=== PATIENT | female | born 1955 | race Caucasian/White ===

== ENCOUNTER → 2018-04-13 09:05 | Outpatient (CLI) | payer BC, SELFPAY ==
--- NOTE | 2018-04-13 09:07 | DI.ECHO.S_ITS ---
[facility] +---------+ : : [address] : : : : [id number] : : : : Phone: [phone]+ Echocardiogram Report + + :Name: WALTER BAUER Study Date: 04/13/2018 Height: 72 in : :[facility] Exam Location: [facility] Weight: 275 lb : : Gender: Female BSA: 2.4 m2 : :: 1955 Age: 62 yrs BP: 138/74 mmHg: :Reason For Study: HTN : :Ordering Physician: Trevor : :[place]ins Performed By: Carolina Pedersen : :Referring: TREVOR GAVIN A : + + Interpretation Summary The left ventricle is mildly dilated but left ventricular systolic function is normal without focal wall motion abnormalities with the ejection fraction visually estimated to be 60-65%. There is mild concentric left ventricular with mild proximal septal thickening and diastolic parameters suggesting a possible pseudonormalization pattern, consistent with elevated filling pressures. The right ventricle is mildly dilated and right ventricular systolic function is at the lower limits of normal. The right ventricular systolic pressure is estimated at 42 mmHg assuming a right atrial pressure of 15 mm Hg. The left atrium is severely dilated and the right atrium is borderline dilated. There is no significant valvular heart disease. The ascending aorta is mild-moderately enlarged and the aortic arch is at the upper limits of normal in size. The patient was in sinus bradycardia with heart rates between 38-53 bpm during the exam. Procedure: A two-dimensional transthoracic echocardiogram with color flow and Doppler was performed. The study quality was technically adequate. There is no prior echocardiogram noted for this patient. The patient was in sinus bradycardia with heart rates between 38-53 bpm during the exam. Left Ventricle: The left ventricle is mildly dilated. There is mild concentric left ventricular hypertrophy. There is mild proximal septal thickening noted. Left ventricular systolic function is normal without focal wall motion abnormalities. The ejection fraction is estimated to be 60-65%. Assessment of diastolic parameters suggests a pseudonormalization pattern, consistent with elevated filling pressures. Right Ventricle: The right ventricle is mildly dilated. Right ventricular systolic function is at the lower limits of normal. Atria: The left atrium is severely dilated. The right atrium is borderline dilated. There is no Doppler evidence for an interatrial shunt. Mitral Valve: The mitral valve is normal in structure and function. There is trace mitral regurgitation. Aortic Valve: The aortic valve is trileaflet. The aortic valve opens well. There is trace aortic regurgitation. Tricuspid Valve: The tricuspid valve is normal in structure and function. There is trace tricuspid regurgitation. The right ventricular systolic pressure is estimated at 42 mmHg assuming a right atrial pressure of 15 mm Hg. Pulmonic Valve: The pulmonic valve is normal in structure and function. There is trace pulmonic regurgitation. There is no significant valvular heart disease. Great Vessels: The aortic root is normal size. The ascending aorta is mild- moderately enlarged. The aortic arch is at the upper limits of normal in size. The pulmonary artery is normal size. The IVC is dilated (diameter is greater than 2.1 cm) and it collapses less than 50% with a sniff. This suggests a high right atrial pressure of 15 mm Hg. Pericardium/ Pleura There is no pericardial effusion. There is no pleural effusion. MMode/2D Measurements & Calculations LVIDd: 5.9 cm LVOT diam: 2.3 cm LVIDs: 3.7 cm Ao root diam: 3.7 cm FS: 37.0 % asc Aorta Diam: 4.0 cm EPSS: 0.32 cm Ao Arch Diam (Prox Trans): 3.0 cm IVSd: 1.0 cm LVPWd: 1.1 cm LV freitas. diameter/BSA (cm/m^2): 2.4 LV sys. diameter/BSA (cm/m^2): 1.5 LA A2 area: 27.0 cm2 RA long axis: 5.4 cm LA A4 area: 30.1 cm2 RA area: 22.0 cm2 LA length (vol): 5.7 cm RA vol: 76.8 ml LA vol: 120.4 ml RA : 31.5 ml/m2 LA vol index: 49.3 ml/m2 IVC diam: 2.2 cm RVD1 (basal): 4.6 cm TAPSE: 2.7 cm Doppler Measurements & Calculations Ao V2 max: 174.0 cm/sec LVOT Max Francisco: 129.8 cm/sec Ao V2 mean: 110.7 cm/sec LV V1 max P.7 mmHg Ao max P.1 mmHg LV V1 VTI: 34.5 cm Ao mean P.5 mmHg DALTON(I,D): 3.4 cm2 Ao V2 VTI: 43.4 cm DALTON(V,D): 3.2 cm2 sev ratio: 0.80 DALTON indexed to BSA (cm^2/m^2): 1.4 MV E max francisco: 129.2 cm/sec TR max francisco: 258.9 cm/sec MV A max francisco: 72.2 cm/sec TR max P.8 mmHg MV E/A: 1.8 PA V2 max: 90.3 cm/sec Med Peak E' Francisco: 7.1 cm/sec PA V2 mean: 57.4 cm/sec E/E' med: 18.3 PA mean P.5 mmHg Lat Peak E' Francisco: 7.4 cm/sec E/E' lat: 17.5 E/e' average: 17.9 MV dec time: 0.26 sec Reading Physician:MICHELLE
== END ==
PROVIDERS: Family Provider Family Medicine; PCP Family Medicine; Visit Provider Family Medicine
DX: I10 Essential (primary) hypertension (principal); I51.7 Cardiomegaly; R00.1 Bradycardia, unspecified
CPT/HCPCS: 93306

== ENCOUNTER → 2018-05-10 11:41 | Outpatient (CLI) | payer BC, SELFPAY ==
--- NOTE | 2018-05-10 | DI.CT.S_ITS ---
PROCEDURE: CT CHEST WO CON INDICATIONS: DISORDER OF ARTERY TECHNIQUE: Noncontrast 5 mm thick sections acquired from the pulmonary apices to the posterior costophrenic angles. 7 mm thick coronal and sagittal MIP reformats were then acquired. For radiation dose reduction, the following was used: automated exposure control, adjustment of mA and/or kV according to patient size. COMPARISON: None. FINDINGS: Image quality: Excellent. Lungs and pleura: No acute air space opacities. Linear scar or atelectasis left lower lobe. No pleural effusions or pneumothorax. Central and peripheral airways are patent and normal in caliber. Mediastinum: Heart size is normal. No pericardial effusion. No mediastinal adenopathy by size criteria. Thoracic aorta is minimally aneurysmal, sagittal diameter of 4.1 cm. The central pulmonary arteries are large in size. Esophagus is normal in caliber. No hiatal hernia. Bones and chest wall: No suspicious bony lesions. No vertebral body compression fractures. No axillary or supraclavicular adenopathy by size criteria. Thyroid gland appears normal. Abdomen: Visualized upper abdominal solid organs and bowel loops appear normal in the absence of contrast. Gallbladder is surgically absent. IMPRESSION: 1. The ascending aorta is mildly aneurysmal with diameter of 4.1 cm. 2. The central pulmonary arteries appear mildly enlarged. 3. The lung is clear with no effusions. No adenopathy by size criteria. 4. Status post cholecystectomy. Dictated by: Lux Foss M.D. on 05/10/2018 at 13:25 Approved by: Lux Foss M.D. on 05/10/2018 at 13:30
== END ==
PROVIDERS: Family Provider Family Medicine; PCP Family Medicine; Visit Provider Hospitalist
DX: I71.4 Abdominal aortic aneurysm, without rupture (principal)
CPT/HCPCS: 71250

== ENCOUNTER → 2018-06-30 13:01 | Outpatient (CLI) | payer BC, SELFPAY ==
[2018-06-30 13:52] LABS: Blood Urea Nitrogen 24 mg/dL (7-17); Carbon Dioxide 29 mmol/L (22-32); Chloride 105 mmol/L (98-107); Estimated Glomerular Filt Rate 55.8 mL/min (>60); Glucose 94 mg/dL (80-110); HEMOLYSIS < 15 (0-50); Potassium 4.1 mmol/L (3.4-5.1); Sodium 146 mmol/L (137-145)
== END ==
PROVIDERS: PCP Family Medicine; Visit Provider Family Medicine
DX: I10 Essential (primary) hypertension (principal)
CPT/HCPCS: 36415; 80048

== ENCOUNTER → 2018-09-23 13:50 | Outpatient (CLI) | payer BC, SELFPAY ==
--- NOTE | 2018-09-23 13:53 | DI.RAD.S_ITS ---
PROCEDURE: XR KNEE LT 3V INDICATIONS: left knee pain TECHNIQUE: 3 views of the knee were acquired. COMPARISON: None. FINDINGS: Bones: No fractures or dislocations there is severe degenerative osteoarthritic change involving the knee joint, all 3 compartments and most pronounced at the medial and lateral compartments where near [id number] articulation can be seen. No suspicious bony lesions. Soft tissues: No joint effusion. No suspicious soft tissue calcifications. IMPRESSION: There is a severe degree of knee joint osteoarthritis with near [id number] articulation likely slightly greater at the lateral compartment the medial compartment with a small effusion associated. No acute trauma. Dictated by: Calderon Silva M.D. on 09/23/2018 at 14:29 Approved by: Calderon Silva M.D. on 09/23/2018 at 14:30
== END ==
PROVIDERS: Visit Provider Family Medicine
DX: M25.562 Pain in left knee (principal)
CPT/HCPCS: 73562

== ENCOUNTER → 2019-03-20 10:43 | Outpatient (CLI) | payer BC, SELFPAY ==
[2019-03-20 14:57] LABS: Hemoglobin A1C% w Est Avg Glu 5.5 % (4.0-6.0)
[2019-03-20 15:19] LABS: BUN Creatinine Ratio 28.2 (6-22); Blood Urea Nitrogen 31 mg/dL (7-17); Carbon Dioxide 30 mmol/L (22-32); Chloride 104 mmol/L (98-107); Glucose 97 mg/dL (80-110); HEMOLYSIS < 15 (0-50); Potassium 4.2 mmol/L (3.4-5.1); Sodium 143 mmol/L (137-145)
[2019-03-20 17:44] LABS: Creatinine Urine Random 214.8 mg/dL
[2019-03-20 17:48] LABS: Microalbumin Urine Random 1.3 mg/dL (0-1.6)
== END ==
PROVIDERS: Visit Provider Family Medicine
DX: I10 Essential (primary) hypertension (principal); E66.9 Obesity, unspecified
CPT/HCPCS: 36415; 80048; 82043; 82570; 83036

== ENCOUNTER → 2019-04-03 06:50 | Outpatient (CLI) | payer BC, SELFPAY ==
--- NOTE | 2019-04-03 06:53 | DI.ECHO.S_ITS ---
[facility]---------+ [facility] +---------+ : : [address] : : : : [id number] : : : : Phone: [phone]+ Echocardiogram Report + + :Name: WALTER BAUER Study Date: 04/03/2019 Height: 72 in : :[facility] Weight: 275 lb : : Gender: Female BSA: 2.4 m2 : :: 1955 Age: 63 yrs BP: 158/86 mmHg: :Reason For Study: Aortic, Ascending Aneurysm : : Performed By: Aliyah Flores : :Referring: JAKE BLANCO : + + Interpretation Summary The left ventricle is mildly dilated. This is unchanged compared to the previous study. Left ventricular systolic function is normal without focal wall motion abnormalities. The ejection fraction is estimated to be 60-65%. Diastolic parameters suggest a relaxation abnormality of the left ventricle, consistent with probable normal filling pressures. The right ventricle is mildly dilated. Right ventricular systolic function is at the lower limits of normal. The right ventricular systolic pressure is estimated to be at least 33 mmHg based on an estimated right atrial pressure of 3 mm Hg. The left atrium is moderately dilated. The right atrium is borderline dilated. There is no significant valvular heart disease. The aortic root is mildly dilated. The ascending aorta is mild-moderately enlarged. Ascending aorta measures 4.1cm on today's exam and 4.0 cm on . The aortic arch is mildly enlarged. Procedure: A two-dimensional transthoracic echocardiogram with color flow and Doppler was performed. The study quality was technically adequate. Comparison is made with the echocardiogram of 04-13-18. The patient was in normal sinus rhythm during the exam. Left Ventricle: The left ventricle is mildly dilated. There is normal left ventricular wall thickness. This is unchanged compared to the previous study. Left ventricular systolic function is normal without focal wall motion abnormalities. The ejection fraction is estimated to be 60-65%. Diastolic parameters suggest a relaxation abnormality of the left ventricle, consistent with probable normal filling pressures. Right Ventricle: The right ventricle is mildly dilated. Right ventricular systolic function is at the lower limits of normal. Atria: The left atrium is moderately dilated. The right atrium is borderline dilated. The interatrial septum is intact with no evidence for an atrial septal defect. Mitral Valve: The mitral valve is normal in structure and function. There is no mitral regurgitation noted. Aortic Valve: The aortic valve is trileaflet. The aortic valve opens well. No aortic regurgitation is present. Tricuspid Valve: The tricuspid valve is normal in structure and function. There is trace tricuspid regurgitation. The right ventricular systolic pressure is estimated to be at least 33 mmHg based on an estimated right atrial pressure of 3 mm Hg. Pulmonic Valve: The pulmonic valve is normal in structure and function. There is trace pulmonic regurgitation. There is no significant valvular heart disease. Great Vessels: The aortic root is mildly dilated. The ascending aorta is mild-moderately enlarged. Ascending aorta measures 4.1cm on today's exam and 4.0 cm on 04-13-18. The aortic arch is mildly enlarged. The IVC is of normal diameter and collapses greater than 50% with a sniff. This suggests a low right atrial pressure of 3 mm Hg. Pericardium/ Pleura There is no pericardial effusion. There is no pleural effusion. MMode/2D Measurements & Calculations LVIDd: 5.9 cm Ao root diam: 3.9 cm LVIDs: 3.7 cm Aortic Jxn: 3.2 cm FS: 36.4 % asc Aorta Diam: 4.1 cm EPSS: 0.42 cm Ao Arch Diam (Prox Trans): 3.4 cm IVSd: 1.0 cm LVPWd: 0.88 cm LV freitas. diameter/BSA (cm/m^2): 2.4 LV sys. diameter/BSA (cm/m^2): 1.5 LA A2 area: 27.4 cm2 RA long axis: 5.5 cm LA A4 area: 27.0 cm2 RA area: 21.8 cm2 LA length (vol): 6.0 cm RA vol: 73.5 ml LA vol: 105.1 ml RA : 30.1 ml/m2 LA vol index: 43.1 ml/m2 RVDd major: 6.3 cm RVD1 (basal): 4.7 cm RVD2 (mid): 4.0 cm Doppler Measurements & Calculations Ao V2 max: 160.2 cm/sec MV E max francisco: 78.6 cm/sec Ao V2 mean: 101.4 cm/sec MV A max francisco: 90.6 cm/sec Ao max P.3 mmHg MV E/A: 0.87 Ao mean P.8 mmHg Med Peak E' Francisco: 5.1 cm/sec Ao V2 VTI: 42.7 cm E/E' med: 15.6 MV dec time: 0.24 sec MV P1/2t: 72.5 msec TR max francisco: 273.3 cm/sec MV P1/2t max francisco: 79.0 cm/sec TR max P.9 mmHg MVA(P1/2t): 3.0 cm2 PA V2 max: 87.5 cm/sec PA V2 mean: 56.6 cm/sec PA mean P.6 mmHg PA Accel Time: 0.14 sec Reading Physician:07:37 PM
--- NOTE | 2019-04-03 07:16 | DI.CT.S_ITS ---
PROCEDURE: CT CHEST W CON INDICATIONS: F/U aortic aneurysm from echo TECHNIQUE: After the administration of intravenous contrast, 5 mm thick sections acquired from the pulmonary apices to the posterior costophrenic angles. 7 mm thick coronal and sagittal MIP reformats were acquired. For radiation dose reduction, the following was used: automated exposure control, adjustment of mA and/or kV according to patient size. COMPARISON: None. FINDINGS: Image quality: Excellent. Lungs and pleura: No acute air space opacities. No pleural effusions or pneumothorax. Central and peripheral airways are patent and normal in caliber. Mediastinum: Heart size is normal. No pericardial effusion. No mediastinal or hilar adenopathy by size criteria. Thoracic aorta measures up to 4.1 cm at the ascending aorta has a maximal diameter, and central pulmonary arteries are normal in size. Esophagus is normal in caliber. No hiatal hernia. Bones and chest wall: No suspicious bony lesions. No vertebral body compression fractures. No axillary or supraclavicular adenopathy by size criteria. Thyroid gland appears normal. Abdomen: Visualized upper abdominal solid organs appear normal. Upper abdominal bowel loops are normal in caliber. IMPRESSION: 4.1 cm ascending aortic caliber, no aortic dissection suspected, pulmonary arteries are normal in caliber and free of embolus. Dictated by: Calderon Silva M.D. on 04/03/2019 at 11:41 Approved by: Calderon Silva M.D. on 04/03/2019 at 11:43
== END ==
PROVIDERS: PCP Family Medicine; Visit Provider Family Medicine
DX: I71.2 Thoracic aortic aneurysm, without rupture (principal); G47.33 Obstructive sleep apnea (adult) (pediatric); I10 Essential (primary) hypertension
CPT/HCPCS: 71260; 93306; Q9967

== ENCOUNTER → 2019-07-13 15:02 | Outpatient (CLI) | payer MEDICARE, BC, SELFPAY | PROVIDERS: PCP Family Medicine | DX: Z23 Encounter for immunization (principal) | CPT/HCPCS: 90471; 90662 ==

== ENCOUNTER → 2019-12-08 14:29 | Outpatient (CLI) | payer MEDICARE, OTHER, BC, SELFPAY ==
[2019-12-08 16:04] LABS: BUN Creatinine Ratio 19.6 (6-22); Blood Urea Nitrogen 27 mg/dL (7-17); Calcium 9.8 mg/dL (8.4-10.2); Carbon Dioxide 25 mmol/L (22-32); Chloride 101 mmol/L (98-107); Estimated Glomerular Filt Rate 38.4 mL/min (>60); Glucose 149 mg/dL (80-110); HEMOLYSIS < 15 (0-50); Potassium 3.4 mmol/L (3.4-5.1); Sodium 137 mmol/L (137-145)
== END ==
PROVIDERS: PCP Family Medicine; Referring Provider Family Medicine; Visit Provider Family Medicine
DX: R79.89 Other specified abnormal findings of blood chemistry (principal)
CPT/HCPCS: 36415; 80048

== ENCOUNTER → 2020-02-05 10:54 | Outpatient (CLI) | payer MEDICARE, OTHER, BC, SELFPAY ==
[2020-02-05 12:29] LABS: Albumin 4.5 g/dL (3.5-5.0); BUN Creatinine Ratio 23.7 (6-22); Blood Urea Nitrogen 23 mg/dL (7-17); Calcium 9.7 mg/dL (8.4-10.2); Carbon Dioxide 26 mmol/L (22-32); Chloride 105 mmol/L (98-107); Estimated Glomerular Filt Rate 57.6 mL/min (>60); Glucose 91 mg/dL (80-110); HEMOLYSIS 20 (0-50); Phosphorous 2.9 mg/dL (2.8-4.1); Potassium 3.8 mmol/L (3.4-5.1); Sodium 139 mmol/L (137-145)
== END ==
PROVIDERS: PCP Family Medicine; Referring Provider Family Medicine; Visit Provider Family Medicine
DX: N28.9 Disorder of kidney and ureter, unspecified (principal)
CPT/HCPCS: 36415; 80069

== ENCOUNTER → 2020-04-08 14:04 | Outpatient (CLI) | payer MEDICARE, OTHER, BC, SELFPAY ==
[2020-04-08 16:02] LABS: BUN Creatinine Ratio 17.1 (6-22); Blood Urea Nitrogen 25 mg/dL (7-17)
== END ==
PROVIDERS: PCP Family Medicine; Referring Provider Family Medicine; Visit Provider Family Medicine
DX: I10 Essential (primary) hypertension (principal)
CPT/HCPCS: 36415; 82565; 84520

== ENCOUNTER → 2020-04-12 08:08 | Outpatient (CLI) | payer MEDICARE, OTHER, BC, SELFPAY ==
--- NOTE | 2020-04-12 08:11 | DI.CT.S_ITS ---
PROCEDURE: CT CHEST W CON INDICATIONS: f/u aneursym TECHNIQUE: After the administration of intravenous contrast, 5 mm thick sections acquired from the pulmonary apices to the posterior costophrenic angles. 1 mm axial lung, 5 mm thick coronal and sagittal reformats and 7 mm axial MIP were acquired. For radiation dose reduction, the following was used: automated exposure control, adjustment of mA and/or kV according to patient size. COMPARISON: [facility], CT, CT CHEST W CON, 04/03/2019, 7:52. FINDINGS: Image quality: Excellent. Lungs and pleura: No acute air space opacities. No pleural effusions or pneumothorax. Central and peripheral airways are patent and normal in caliber. Mediastinum: Heart size is normal. No pericardial effusion. No mediastinal or hilar adenopathy by size criteria. No significant change in borderline aneurysmal dilatation of the ascending aorta. Previous measurement was 4.1 cm. Current measurement is 4.0 cm. Esophagus is normal in caliber. No hiatal hernia. Bones and chest wall: No suspicious bony lesions. No vertebral body compression fractures. No axillary or supraclavicular adenopathy by size criteria. Thyroid gland is unremarkable as visualized. Abdomen: Mild hepatic steatosis. Remote cholecystectomy. IMPRESSION: Stable borderline aneurysmal dilatation of the ascending aorta, measuring 4.0 cm. Dictated by: Ousmane Wetzel M.D. on 04/12/2020 at 10:02 Approved by: Ousmane Wetzel M.D. on 04/12/2020 at 10:07
== END ==
PROVIDERS: PCP Family Medicine; Referring Provider Family Medicine; Visit Provider Family Medicine
DX: I71.2 Thoracic aortic aneurysm, without rupture (principal); K76.0 Fatty (change of) liver, not elsewhere classified; Z90.49 Acquired absence of other specified parts of digestive tract
CPT/HCPCS: 71260; Q9967

== ENCOUNTER → 2020-05-30 16:44 | Outpatient (CLI) | payer MEDICARE, BC, OTHER, SELFPAY ==
[2020-05-30 17:16] LABS: Miscellaneous to LabCorp KIT TEST
[2020-05-30 18:17] LABS: BUN Creatinine Ratio 22.6 (6-22); Blood Urea Nitrogen 24 mg/dL (7-17)
== END ==
PROVIDERS: PCP Family Medicine; Referring Provider Obstetrics & Gynecology; Visit Provider Obstetrics & Gynecology
DX: N28.9 Disorder of kidney and ureter, unspecified (principal); Z80.0 Family history of malignant neoplasm of digestive organs; Z80.3 Family history of malignant neoplasm of breast
CPT/HCPCS: 36415; 82565; 84520

== ENCOUNTER → 2020-07-04 17:27 | Outpatient (CLI) | payer MEDICARE, OTHER, BC, SELFPAY | PROVIDERS: PCP Family Medicine; Referring Provider Internal Medicine; Visit Provider Internal Medicine | DX: Z23 Encounter for immunization (principal) | CPT/HCPCS: 90471; 90662 ==

== ENCOUNTER → 2021-04-14 10:14 | Outpatient (CLI) | payer MEDICARE, OTHER, SELFPAY ==
[2021-04-14 11:22] LABS: Add Manual Diff / Slide Review NO; Basophils Absolute Auto 0 /uL (0-100); Basophils Percent Auto 0.5 % (0-2); Eosinophils Absolute Auto 200 /uL (0-450); Eosinophils Percent Auto 2.4 % (2-4); Hemoglobin 13.9 g/dL (12.0-16.0); Lymphocytes Absolute Auto 2900 /uL (1100-4500); Lymphocytes Percent Auto 40.3 % (25-40); Mean Corpuscular HGB Conc 33.9 % (30-36); Mean Corpuscular Hemoglobin 30.7 PG (26-34); Mean Corpuscular Volume 90.5 fL (80-100); Monocytes Absolute Auto 300 /uL (0-900); Monocytes Percent Auto 4.6 % (3-14); Neutrophils Absolute Auto 3800 /uL (1500-7000); Neutrophils Percent Auto 52.2 % (50-75); Platelet Count 329 X10^3/uL (150-400); Red Blood Cell Count 4.53 X10^6/uL (4.0-5.2); Red Cell Distribution Width 14.8 % (11.6-14.8); White Blood Cell Count 7.2 X10^3/uL (4.5-11.0)
[2021-04-14 11:35] LABS: Alanine Aminotransferase 20 IU/L (<35); Albumin 4.1 g/dL (3.5-5.0); Albumin Globulin Ratio 1.4 (1.0-2.8); Alkaline Phosphatase 76 U/L (38-126); Aspartate Aminotransferase 26 IU/L (14-36); BUN Creatinine Ratio 23.6 (6-22); Bilirubin Total 0.5 mg/dL (0.2-1.3); Blood Urea Nitrogen 21 mg/dL (7-17); Calcium 9.5 mg/dL (8.4-10.2); Carbon Dioxide 28 mmol/L (22-32); Chloride 103 mmol/L (98-107); Estimated Glomerular Filt Rate > 60.0 mL/min (>60); Glucose 97 mg/dL (80-110); HEMOLYSIS < 15 (0-50); Potassium 3.9 mmol/L (3.4-5.1); Sodium 137 mmol/L (137-145); Total Protein 7.1 g/dL (6.3-8.2)
[2021-04-14 11:50] LABS: Creatinine Urine Random 54.2 mg/dL
[2021-04-14 11:55] LABS: Microalbumin Urine Random < 0.6 mg/dL (0-1.6)
== END ==
PROVIDERS: PCP Family Medicine; Referring Provider Family Medicine; Visit Provider Family Medicine
DX: E66.9 Obesity, unspecified (principal); I10 Essential (primary) hypertension
CPT/HCPCS: 36415; 80053; 82043; 82570; 85025

== ENCOUNTER → 2021-04-15 12:12 | Outpatient (CLI) | payer MEDICARE, OTHER, SELFPAY ==
--- NOTE | 2021-04-15 12:17 | DI.CT.S_ITS ---
PROCEDURE: CT CHEST W CON INDICATIONS: f/u aneurysm TECHNIQUE: After the administration of intravenous contrast, 5 mm thick sections acquired from the pulmonary apices to the posterior costophrenic angles. 1 mm axial lung, 5 mm thick coronal and sagittal reformats and 7 mm axial MIP were acquired. For radiation dose reduction, the following was used: automated exposure control, adjustment of mA and/or kV according to patient size. Unchanged COMPARISON: [facility], CT, CT CHEST W CON, 04/12/2020, 8:18. [facility], CT, CT CHEST W CON, 04/03/2019, 7:52. FINDINGS: Image quality: Excellent. Lungs and pleura: No acute air space opacities. No pleural effusions or pneumothorax. Central and peripheral airways are patent and normal in caliber. Mediastinum: Heart size is normal. No pericardial effusion. No mediastinal or hilar adenopathy by size criteria. Thoracic aorta and central pulmonary arteries are unchanged in size with the maximal AP and transverse dimensions of the ascending aorta measured in the same area as that performed 04/12/20 as 4.0 x 4.0 cm, respectively.. Esophagus is normal in caliber. No hiatal hernia. Bones and chest wall: No suspicious bony lesions. No vertebral body compression fractures. No axillary or supraclavicular adenopathy by size criteria. Thyroid gland appears normal where well seen. . Abdomen: Visualized upper abdominal solid organs appear normal. Upper abdominal bowel loops are normal in caliber. IMPRESSION: Stable size of the ascending aorta, with reference to prior CT scanning, with maximal axial dimension 4.0 cm Dictated by: Calderon Silva M.D. on 04/15/2021 at 13:11 Approved by: Calderon Silva M.D. on 04/15/2021 at 13:16
== END ==
PROVIDERS: PCP Family Medicine; Referring Provider Family Medicine; Visit Provider Family Medicine
DX: I71.2 Thoracic aortic aneurysm, without rupture (principal)
CPT/HCPCS: 71260

== ENCOUNTER 2021-06-12 10:24 | Emergency (ER) | payer OTHER, SELFPAY ==
[2021-06-12 10:52] VITALS: BP 185/83; PULSE 55; RESP 20; TEMP 36.7; O2SAT 95; BMI 37.3
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
[2021-06-12 11:20] VITALS: PULSE 50; O2SAT 97
[2021-06-12 11:30] VITALS: PULSE 53; O2SAT 97
[2021-06-12 11:31] VITALS: BP 174/74; PULSE 53; O2SAT 96
[2021-06-12 11:39] LABS: Add Manual Diff / Slide Review NO; Basophils Absolute Auto 0 /uL (0-100); Basophils Percent Auto 0.3 % (0-2); Eosinophils Absolute Auto 200 /uL (0-450); Eosinophils Percent Auto 2.5 % (2-4); Hematocrit 43.1 % (36-46); Hemoglobin 14.4 g/dL (12.0-16.0); Lymphocytes Absolute Auto 1200 /uL (1100-4500); Lymphocytes Percent Auto 12.9 % (25-40); Mean Corpuscular HGB Conc 33.5 % (30-36); Mean Corpuscular Hemoglobin 30.8 PG (26-34); Mean Corpuscular Volume 91.9 fL (80-100); Monocytes Absolute Auto 400 /uL (0-900); Monocytes Percent Auto 4.2 % (3-14); Neutrophils Absolute Auto 7500 /uL (1500-7000); Neutrophils Percent Auto 80.1 % (50-75); Platelet Count 335 X10^3/uL (150-400); Red Blood Cell Count 4.69 X10^6/uL (4.0-5.2); Red Cell Distribution Width 14.9 % (11.6-14.8); White Blood Cell Count 9.4 X10^3/uL (4.5-11.0)
[2021-06-12 11:59] LABS: Alanine Aminotransferase 27 IU/L (<35); Albumin 4.3 g/dL (3.5-5.0); Albumin Globulin Ratio 1.4 (1.0-2.8); Alkaline Phosphatase 66 U/L (38-126); Aspartate Aminotransferase 34 IU/L (14-36); BUN Creatinine Ratio 21.6 (6-22); Bilirubin Total 0.5 mg/dL (0.2-1.3); Blood Urea Nitrogen 22 mg/dL (7-17); Calcium 9.7 mg/dL (8.4-10.2); Carbon Dioxide 32 mmol/L (22-32); Chloride 104 mmol/L (98-107); Creatine Kinase 60 U/L (30-135); Estimated Glomerular Filt Rate 54.1 mL/min (>60); Ethanol (ETOH) < 10 mg/dL; Glucose 144 mg/dL (80-110); HEMOLYSIS 28 (0-50); Lipase 123 U/L (23-300); Potassium 3.5 mmol/L (3.4-5.1); Sodium 140 mmol/L (137-145); Total Protein 7.3 g/dL (6.3-8.2)
[2021-06-12] MEDS: LIDO 1%/SOD BICARB 8.4% (10ML) 10 ML SYRINGE INJ (12:07)
[2021-06-12 12:10] LABS: Troponin I < 0.012 ng/mL (0.01-0.034)
== END 2021-06-12 12:44 | disposition home or self-care (01) ==
PROVIDERS: Emergency Provider Emergency Medicine; Family Provider Family Medicine; PCP Family Medicine
DX: S01.01XA Laceration without foreign body of scalp, initial encounter (principal); S06.0X0A Concussion without loss of consciousness, initial encounter; V89.2XXA Person injured in unspecified motor-vehicle accident, traffic, initial encounter
CPT/HCPCS: 12002; 36415; 70450; 71045; 72125; 80053; 80320; 82550; 83690; 84484; 85025; 93005; 93010; 99285; 99291; 99292

== ENCOUNTER 2021-07-08 09:00 | Outpatient (RCR) | payer MEDICARE, OTHER, SELFPAY ==
--- NOTE | 2021-06-09 09:37 | PT.OIE ---
Current Diagnoses Radiculopathy, cervical region (06/09/21) Pain in right arm (06/09/21) Past Medical History (Last Updated 04/21/21 @ 09:29 by Noni Aragon MD) Absence of gallbladder (2005) Ascending aortic aneurysm Chicken pox Colon polyps (2009) Concussion (1974) Concussion (1972) H/O vein stripping (1983) Hemorrhoids (1990) Hypertension (2005) Mumps Murmur, cardiac (1953) Obesity (BMI 30-39.9) Obstructive sleep apnea of adult Past Surgical History (Last Reviewed 02/02/19 @ 14:22 by Jonny Rick MD) Anesthesia H/O vein stripping (1983) History of third molar tooth extraction Status post arthroscopy (1981) Status post cholecystectomy (2005) Status post dilation and curettage (2013) Status post laparoscopic supracervical hysterectomy (01/25/17) Visit Care Team Role Provider Type Noni Aragon MD Attending Provider Physician Family Provider Primary Care Provider Referring Provider Specialty: [facility] Address: [address] [place] [address], [facility] Email: [email or web address] Physical Therapy Initial Evaluation PT-OP-A Visit Information Start: 06/09/21 07:30 Freq: Status: Active Protocol: Document 06/09/21 07:31 AMB (Rec: 06/09/21 08:59 AMB [email or web address]) Out-Patient Physical Therapy Visit Information Visit Information Visit Type Initial Evaluation Visit Start Time 07:30 Visit Stop Time 08:15 Total Visit Minutes 45 Visit Number 1 PT-OP-B Current Condition Start: 06/09/21 07:30 Freq: Status: Active Protocol: Document 06/09/21 07:31 AMB (Rec: 06/09/21 07:56 AMB [id number]) Current Condition History of Current Condition Onset Date 2 years ago, flare up a couple weeks ago Current Complaints R UE pain/ index finger numb/ tingle History of Current Condition Severe flare up 2 years ago after a long flight where she was quite scrunched up, pain went away but numbness in index finger remained. Then a few weeks ago pain came back. Was put on steroids did chiropractic and massage and now it is feeling better. The pain was like a vice material clerk around upper and lower arm. Lying on her stomach and the arm being pulled down increased the pain. Position of comfort was to have the arm up, abducted away. Treatment Goals Patient/Caregiver Goals Learn what to do if the pain returns Prior Functional Status Baseline Function- ADL's Independent Baseline Function- Mobility Independent Personal Factors Other Personal Factors That May Effect Aortic aneurysm, L TKA, Therapy/Recovery hypertension, hx concussion x2 . PT-OP-C Subjective Start: 06/09/21 07:30 Freq: Status: Active Protocol: Document 06/09/21 07:30 AMB (Rec: 06/10/21 09:17 AMB [email or web address]) Patient Questionnaires Neck Disability Index NDI Score 11 Neck Disability Index Impairment 20 to 39% Impaired (Score 10- 19) Quick Dash- Upper Extremity Quick Dash UE Score 41 Quick Dash UE Impairment 40 to 59% Impaired (Score 40- 59) OP-PT Pain Assessment Comments Pain Comments right upper and lower arm sharp pain, index finger numbness PT-OP-J Posture/Palpation/Skin Start: 06/09/21 07:30 Freq: Status: Active Protocol: Document 06/09/21 07:30 AMB (Rec: 06/10/21 09:17 AMB [email or web address]) Posture Evaluation Comments Posture Comments Forward head and forward shoulders Palpation Assessment Location One Palpation Details Tinels sign negative and wrist and cubital fossa, tenderness and tightness at bilateral upper trapezius/levator scap PT-OP-K Range of Motion Start: 06/09/21 07:30 Freq: Status: Active Protocol: Document 06/09/21 07:30 AMB (Rec: 06/10/21 09:17 AMB [email or web address]) Cervical Spine Range of Motion Cervical Spine Active Degrees Testing Position Sitting Flexion 35 Extension 30 Rotation Left 62 Rotation Right 42 Lateral Flexion Left 25 Lateral Flexion Right 8 ROM Limitations Bony Restriction,Pain PT-OP-M Strength Start: 06/09/21 07:30 Freq: Status: Active Protocol: Document 06/09/21 07:30 AMB (Rec: 06/10/21 09:17 AMB [email or web address]) Shoulder Strength Shoulder Manual Muscle Testing Right Flexion 5 Normal Abduction (C5) 4 Good External Rotation 5 Normal Internal Rotation 5 Normal Finger/Thumb Strength Finger Manual Muscle Testing Right Second Extension (thumb C8) 5 Normal Abduction (fingers T1) 5 Normal PT-OP-Q Treatments Start: 06/09/21 07:30 Freq: Status: Active Protocol: Document 06/09/21 07:30 AMB (Rec: 06/10/21 09:17 AMB [email or web address]) Therapeutic Exercises Supine Exercises 1 Supine Exercise Name garcia balderas PT-OP-T Assessment and Plan Start: 06/09/21 07:30 Freq: Status: Active Protocol: Document 06/09/21 07:30 AMB (Rec: 06/10/21 09:37 AMB [email or web address]) Physical Therapy Assessment Rehab Potential Rehabilitation Potential Good Evaluation Complexity Number of Personal Factors/Comorbidities 1-2 Number of Body Systems Impaired 3 Clinical Presentation at Evaluation Evolving Impairments Impairments Functional Activities,Pain, Posture,ROM Goals Two Impairment R arm pain Short Term Goal (STG) Kailey will lift 10# with her right arm without increased numbness or pain. STG Duration 4 weeks Demo Event Specialist Goal (LTG) Kailey will be independent with a HEP to manage her R arm pain/numbness. LTG Duration 8 weeks One Impairment cervical ROM Short Term Goal (STG) Kailey will increas her cervical rotation to 50 degrees bilaterally. STG Duration 4 weeks Demo Event Specialist Goal (LTG) Kailey will increase her cervical extension to 40 degrees without and increase in pain. LTG Duration 8 weeks Assessment Summary Assessment Kailey attends physical therapy having had two severe pain flare ups in her right arm years apart. She is hoping to avoid further pain flares. She does have significant ROM restriction in her neck, especially on the right. Fortunately her strength has remained despite continued numbness in her index finger. She will benefit from physical therapy to help her manage her cervical stiffness and right arm pain and to learn management techniques if it does return. Physical Therapy Plan Frequency and Duration Frequency of Treatment 2x/Week Duration of Treatment 6 weeks Plan of Care Start Date 06/09/21 Plan of Care End Date 07/21/21 Therapeutic Interventions Therapeutic Interventions Home Exercise Program,Joint Mobilizations,Manual Therapy, Neuromuscular Re-education, Self-Care/Home Management,Soft Tissue Mobilization, Therapeutic Activities, Therapeutic Exercises Modalities Cold Pack/Ice Massage,Electric Stimulation,Hot Packs, Traction- Mechanical Next Visit Focus/Plan Next Note Type Treatment Note Next Visit Plan Consider traction, follow up on nerve glides
--- NOTE | 2021-06-09 09:37 | PT.OPPOC ---
Physical, Occupational & Speech Therapy At [facility] Current Diagnoses Radiculopathy, cervical region (06/09/21) Pain in right arm (06/09/21) Visit Care Team Role Provider Type Noni Aragon MD Attending Provider Physician Family Provider Primary Care Provider Referring Provider Specialty: Family Practice Address: [address] [place] [address], [facility] Email: [email or web address] Plan Of Care PT-OP-T Assessment and Plan Start: 06/09/21 07:30 Freq: Status: Active Protocol: Document 06/09/21 07:30 AMB (Rec: 06/10/21 09:37 AMB [email or web address]) Physical Therapy Assessment Rehab Potential Rehabilitation Potential Good Evaluation Complexity Number of Personal Factors/Comorbidities 1-2 Number of Body Systems Impaired 3 Clinical Presentation at Evaluation Evolving Impairments Impairments Functional Activities,Pain, Posture,ROM Goals Two Impairment R arm pain Short Term Goal (STG) Kailey will lift 10# with her right arm without increased numbness or pain. STG Duration 4 weeks Prison Goal (LTG) Kailey will be independent with a HEP to manage her R arm pain/numbness. LTG Duration 8 weeks One Impairment cervical ROM Short Term Goal (STG) Kailey will increas her cervical rotation to 50 degrees bilaterally. STG Duration 4 weeks Nonprofit Director Goal (LTG) Kailey will increase her cervical extension to 40 degrees without and increase in pain. LTG Duration 8 weeks Assessment Summary Assessment Kailey attends physical therapy having had two severe pain flare ups in her right arm years apart. She is hoping to avoid further pain flares. She does have significant ROM restriction in her neck, especially on the right. Fortunately her strength has remained despite continued numbness in her index finger. She will benefit from physical therapy to help her manage her cervical stiffness and right arm pain and to learn management techniques if it does return. Physical Therapy Plan Frequency and Duration Frequency of Treatment 2x/Week Duration of Treatment 6 weeks Plan of Care Start Date 06/09/21 Plan of Care End Date 07/21/21 Therapeutic Interventions Therapeutic Interventions Home Exercise Program,Joint Mobilizations,Manual Therapy, Neuromuscular Re-education, Self-Care/Home Management,Soft Tissue Mobilization, Therapeutic Activities, Therapeutic Exercises Modalities Cold Pack/Ice Massage,Electric Stimulation,Hot Packs, Traction- Mechanical Next Visit Focus/Plan Next Note Type Treatment Note Next Visit Plan Consider traction, follow up on nerve glides Plan of Care Dates Plan of Care Start Date 06/09/21 Plan of Care End Date 07/21/21 Electronically Signed by: Virginia Boyd, PT 06/10/21 0937 Please Sign and Return: I have reviewed this Plan of Care and certify that the skilled therapy services above are required to meet the patient?s needs. Physician Signature Date Printed Name and Credentials Clinical Instructor Signature Printed Name and Credentials
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
== END 2021-10-28 09:55 ==
LOC: PHYS 09:00
PROVIDERS: Family Provider Family Medicine; PCP Family Medicine; Referring Provider Family Medicine; Visit Provider Family Medicine
DX: M54.12 Radiculopathy, cervical region (principal); M79.601 Pain in right arm
CPT/HCPCS: 97012; 97110; 97140; 97162

== ENCOUNTER → 2021-08-07 19:14 | Outpatient (CLI) | payer MEDICARE, OTHER, SELFPAY | PROVIDERS: Family Provider Family Medicine; PCP Family Medicine; Referring Provider Internal Medicine; Visit Provider Internal Medicine | DX: Z23 Encounter for immunization (principal) | CPT/HCPCS: 90471; 90662 ==

== ENCOUNTER → 2022-04-16 11:42 | Outpatient (CLI) | payer MEDICARE, OTHER, SELFPAY ==
[2022-04-16 14:13] LABS: Alanine Aminotransferase 19 IU/L (<35); Albumin Globulin Ratio 1.5 (1.0-2.8); Alkaline Phosphatase 76 U/L (38-126); Aspartate Aminotransferase 25 IU/L (14-36); BUN Creatinine Ratio 23.5 (6-22); Bilirubin Total 0.3 mg/dL (0.2-1.3); Blood Urea Nitrogen 23 mg/dL (7-17); Calcium 9.5 mg/dL (8.4-10.2); Carbon Dioxide 30 mmol/L (22-32); Chloride 102 mmol/L (98-107); Estimated Glomerular Filt Rate > 60 mL/min (>60); Globulin 2.6 g/dL (1.7-4.1); Glucose 94 mg/dL (80-110); HEMOLYSIS < 15 (0-50); Potassium 3.9 mmol/L (3.4-5.1); Sodium 138 mmol/L (137-145); Total Protein 6.6 g/dL (6.3-8.2)
== END ==
PROVIDERS: Family Provider Family Medicine; PCP Family Medicine; Referring Provider Family Medicine; Visit Provider Family Medicine
DX: E66.9 Obesity, unspecified (principal); I10 Essential (primary) hypertension
CPT/HCPCS: 36415; 80053

== ENCOUNTER → 2022-04-17 08:06 | Outpatient (CLI) | payer MEDICARE, OTHER, SELFPAY ==
--- NOTE | 2022-04-17 08:07 | DI.CT.S_ITS ---
PROCEDURE: CT CHEST W CON INDICATIONS: f/u aneurysm TECHNIQUE: After the administration of intravenous contrast, 5 mm thick sections acquired from the pulmonary apices to the posterior costophrenic angles. 1 mm axial lung, 5 mm thick coronal and sagittal reformats and 7 mm axial MIP were acquired. For radiation dose reduction, the following was used: automated exposure control, adjustment of mA and/or kV according to patient size. COMPARISON: [facility], CT, CT CHEST WO CON, 05/10/2018, 11:42. [facility], CT, CT CHEST W CON, 04/15/2021, 12:14. [facility], CT, CT CHEST W CON, 04/12/2020, 8:18. FINDINGS: Image quality: Excellent. Lungs and pleura: No acute air space opacities. No pleural effusions or pneumothorax. Central and peripheral airways are patent and normal in caliber. Mediastinum: Heart size is normal. No pericardial effusion. No mediastinal or hilar adenopathy by size criteria. The ascending thoracic aorta measures 4.4 cm in diameter at the level of the right pulmonary artery, which is stable when compared to the CT from 04/15/2021 and 04/12/2020 and dating back to 05/10/2018. The main pulmonary artery measures up to 3.1 cm in diameter, also stable. Esophagus is normal in caliber. Questionable trace hiatal hernia. Bones and chest wall: No suspicious bony lesions. No vertebral body compression fractures. No axillary or supraclavicular adenopathy by size criteria. Thyroid is unremarkable. Abdomen: Status post cholecystectomy. A 0.9 cm hypodense lesion in the left hepatic lobe is most likely a cyst. IMPRESSION: 1. Ascending thoracic aorta measures up to 4.0 cm in diameter, which is stable dating back to the CT from 05/10/2018. 2. Main pulmonary artery measures 3.1 cm in diameter, stable. Dictated by: Carlton Barry M.D. on 04/17/2022 at 8:42 Approved by: Carlton Barry M.D. on 04/17/2022 at 8:56
== END ==
PROVIDERS: Family Provider Family Medicine; PCP Family Medicine; Referring Provider Family Medicine; Visit Provider Family Medicine
DX: I71.2 Thoracic aortic aneurysm, without rupture (principal)
CPT/HCPCS: 71260

== ENCOUNTER → 2022-07-20 12:06 | Outpatient (CLI) | payer MEDICARE, OTHER, SELFPAY ==
[2022-07-20 12:47] LABS: Hemoglobin A1C% w Est Avg Glu 5.8 % (4.0-6.0)
[2022-07-20 12:57] LABS: Cholesterol 201 mg/dL (140-199); HDL Cholesterol 56 mg/dL (40-60); LDL Cholesterol Calculated 122 mg/dL (<100); Triglycerides 113 mg/dL (35-150)
[2022-07-20 16:14] LABS: Creatinine Urine Random 101.8 mg/dL
[2022-07-20 16:19] LABS: Microalbumi Creatinin Ratio Ur 12.7 ug/mg CR (<30); Microalbumin Urine Random 1.3 mg/dL (0-1.6)
== END ==
PROVIDERS: Family Provider Family Medicine; PCP Family Medicine; Referring Provider Family Medicine; Visit Provider Family Medicine
DX: E66.9 Obesity, unspecified (principal); I10 Essential (primary) hypertension; R73.9 Hyperglycemia, unspecified
CPT/HCPCS: 36415; 80061; 82043; 82570; 83036

== ENCOUNTER → 2022-07-31 12:38 | Outpatient (CLI) | payer MEDICARE, OTHER, SELFPAY | PROVIDERS: Family Provider Family Medicine; PCP Family Medicine; Referring Provider Internal Medicine; Visit Provider Internal Medicine | DX: Z23 Encounter for immunization (principal) | CPT/HCPCS: 90471; 90662 ==

== ENCOUNTER → 2022-08-12 07:45 | Outpatient (CLI) | payer MEDICARE, OTHER, SELFPAY ==
--- NOTE | 2022-08-24 14:23 | P.HOLT.S_ITS ---
Chemical Engineering Intern Report Referral & Results Date Patient Seen: 08/12/22 Requesting provider: Noni Aragon Indication: Bradycardia Duration of monitoring (days): 1 Diary information: There were no patient events to review Data: Minimum heart rate identified was 46 beats per minute at 18:12 on 08/12/2022 Maximum heart rate was 93 beats per minute at 12:13 on 08/12/2022 There were no pauses of 3 seconds or longer, episodes of atrial fibrillation or supraventricular tachycardia identified on this study Impression: phototypesetting equipment monitor that was in place for less than 24 hours demonstrating above ranges for heart rate. Clinical correlation suggested
--- NOTE | 2022-09-03 11:53 | P.HOLT.S_ITS ---
Animal Care Attendant Report Referral & Results Date Patient Seen: 08/13/22 Requesting provider: Noni Aragon Indication: Bradycardia Duration of monitoring (days): 14 Diary information: There were no patient events to review Data: Minimum heart rate identified was 33 beats per minute at 09:17 on 08/22/2022 Maximum sinus heart rate was 97 beats per minute at 10:23 on 08/18/2022 Maximum overall heart rate was 136 beats per minute at 00:26 on 08/21/2022 during the single run of nonsustained ventricular tachycardia that was 5 beats in duration Less than 1% of identified beats were ventricular or supraventricular ectopic in origin, which would classify them as rare. There was the single 5 beat run of nonsustained ventricular tachycardia as above There were 3 runs of SVT/atrial tachycardia with the fastest being the 5 beat run at 112 beats per minute the longest lasting 9 beats There were no pauses or episodes of atrial fibrillation identified on this study Patient's heart rate was less than 50 consistently for several hours at a time on every day of the monitoring period. 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
== END ==
PROVIDERS: Family Provider Family Medicine; PCP Family Medicine; Referring Provider Family Medicine; Visit Provider Family Medicine
DX: R00.1 Bradycardia, unspecified (principal)
CPT/HCPCS: 93244; 93246; 93248

== ENCOUNTER → 2022-12-04 10:22 | Outpatient (CLI) | payer MEDICARE, OTHER, SELFPAY ==
--- NOTE | 2022-12-04 10:49 | DI.DEXA.S_ITS ---
Indication: postmenopausal; screening for osteoporosis; Referring Provider: JAKE BLANCO Study: Bone densitometry was performed. Exam Date: December 04, 2022 Accession number: [id number] Bone Density: Region BMD T-score Z-score Classification AP Spine(L1, L3, L4) 1.383 3.0 5.0 Normal Femoral Neck (Left) 1.108 2.3 4.0 Normal Total Hip (Left) 1.302 2.9 4.4 Normal Femoral Neck (Right) 1.110 2.4 4.1 Normal Total Hip (Right) 1.264 2.6 4.1 Normal Total Hip Mean 1.283 2.8 4.3 Normal World Health Organization criteria for BMD impression classify patients as: Normal (T-score at or above -1.0), Osteopenia (T-score between -1.0 and -2.5), or Osteoporosis (T-score at or below -2.5). 10-year Fracture Risk: FRAX not reported because: All T-scores for Spine Total, Hip Total, Femoral Neck at or above -1.0 Impression: The patient has normal bone mass. Discussion: LOW RISK OF FRACTURE; BONE DENSITY IS WELL ABOVE THE MINIMUM DESIRABLE LEVEL AND ABOVE AVERAGE FOR AGE AND SEX AT ALL SKELETAL SITES TESTED. This person's bone density is above expected limits for age and sex. This is rarely clinically significant, but should be pursued if there are significant musculoskeletal complaints. The patient should follow a healthful lifestyle (good nutrition with adequate calcium and vitamin D, and appropriate weight-bearing exercise). Follow-Up: Consider repeating this study in 5 years or sooner if there is some new clinical indication. Reported by: Allen Dorsey M.D. on 12/04/2022 11:11:00 AM.
== END ==
PROVIDERS: Family Provider Family Medicine; PCP Family Medicine; Referring Provider Family Medicine; Visit Provider Family Medicine
DX: Z78.0 Asymptomatic menopausal state (principal); Z13.820 Encounter for screening for osteoporosis
CPT/HCPCS: 77080

== ENCOUNTER → 2022-12-10 13:43 | Outpatient (CLI) | payer MEDICARE, OTHER, SELFPAY ==
--- NOTE | 2022-12-10 | DI.ECHO.S_ITS ---
[facility] +---------+ : : [address] : : : : [id number] : : : : Phone: [phone]---------+ Echocardiogram Report + + :Name: WALTER BAUER Study Date: 12/10/2022 Height: 72 in : :[facility] [place]: Weight: 285 lb : : Gender: Female BSA: 2.5 m2 : :: 1955 Age: 67 yrs BP: 167/93 mmHg: :Reason For Study: BRADYCARDIA : :Ordering Physician: EUGENIA, : :CLARISSA Lacy Performed By: Mary Jo Fulton : :Referring: CLARISSA BELLO : + + Interpretation Summary The ejection fraction is estimated to be 60-65%. Grade I diastolic dysfunction. The left atrium is mildly dilated. The right ventricle is normal in size and function. No significant valvular abnormalities. Unable to estimate PASP. Ascending aorta 4.1 cm. Compared to the prior study dated 04/03/2019, no significant change. Procedure: A two-dimensional transthoracic echocardiogram with color flow and Doppler was performed. The study quality was technically adequate. Comparison is made with the echocardiogram of 04/03/2019. The patient was in sinus rhythm with heart rates between 49-86 bpm during the exam. Left Ventricle: The left ventricle is normal in size. Proximal septal thickening is noted. The ejection fraction is estimated to be 60-65%. Diastolic parameters suggest a relaxation abnormality of the left ventricle, consistent with probable normal filling pressures. Right Ventricle: The right ventricle is normal in size and function. Atria: The left atrium is mildly dilated. Right atrial size is normal. There is no Doppler evidence for an interatrial shunt. Mitral Valve: The mitral valve is normal in structure and function. There is trace mitral regurgitation. Aortic Valve: The aortic valve is trileaflet. The aortic valve opens well. There is no aortic valve stenosis. No aortic regurgitation is present. Tricuspid Valve: The tricuspid valve is normal in structure and function. There is trace tricuspid regurgitation. Pulmonary artery pressures cannot be estimated because of the lack of a measurable TR jet velocity. Pulmonic Valve: The pulmonic valve leaflets are thin and pliable; valve motion is normal. There is trace pulmonic regurgitation. Great Vessels: The aortic root is mildly dilated. The ascending aorta is mild-moderately enlarged. The IVC is of normal diameter and collapses greater than 50% with a sniff. This suggests a low right atrial pressure of 3 mm Hg. Pericardium/ Pleura There is no pericardial effusion. There is no pleural effusion. MMode/2D Measurements & Calculations LVIDd: 5.0 cm LVOT diam: 2.5 cm LVIDs: 3.3 cm Ao root diam: 4.1 cm FS: 34.5 % asc Aorta Diam: 4.1 cm IVSd: 1.2 cm Ao Arch Diam (Prox Trans): 2.8 cm LVPWd: 0.96 cm LV freitas. diameter/BSA (cm/m^2): 2.0 LV sys. diameter/BSA (cm/m^2): 1.3 LA A2 area: 27.0 cm2 RA long axis: 5.4 cm LA A4 area: 23.5 cm2 RA area: 17.6 cm2 LA length (vol): 5.5 cm RA vol: 48.3 ml LA vol: 98.3 ml RA : 19.5 ml/m2 LA vol index: 39.7 ml/m2 IVC diam: 0.99 cm RVD1 (basal): 3.7 cm RVD2 (mid): 3.5 cm TAPSE: 2.1 cm Doppler Measurements & Calculations Ao V2 max: 143.2 cm/sec LVOT Max Francisco: 134.2 cm/sec Ao V2 mean: 102.6 cm/sec LV V1 max P.2 mmHg Ao max P.2 mmHg LV V1 VTI: 30.5 cm Ao mean P.6 mmHg DALTON(I,D): 4.4 cm2 Ao V2 VTI: 35.1 cm DALTON(V,D): 4.7 cm2 sev ratio: 0.87 DALTON indexed to BSA (cm^2/m^2): 1.8 MV E max francisco: 65.6 cm/sec PA V2 max: 103.3 cm/sec MV A max francisco: 93.4 cm/sec PA V2 mean: 71.4 cm/sec MV E/A: 0.70 PA mean P.3 mmHg Med Peak E' Francisco: 14.5 cm/sec PA pr(Accel): 39.6 mmHg E/E' med: 4.5 Lat Peak E' Francisco: 4.8 cm/sec E/E' lat: 13.6 E/e' average: 9.1 MV dec time: 0.27 sec SV(LVOT): 153.8 ml [place] Physician:11:20 AM
--- NOTE | 2022-12-10 | DI.NM.S_ITS ---
PROCEDURE: NM EXERCISE TREADMILL NON NUC COMPARISON: None INDICATIONS: Bradycardia FINDINGS: Rest ECG sinus rhythm, 60 bpm. Vaughn protocol 3:51, maximum heart rate 140 bpm (92% peak predicted), maximum blood pressure 186/102, 5.8 METS, CHAVO +35%. Exercise ECG 6 sinus tachycardia, no ST segment changes, PACs and PVCs at peak exercise, no arrhythmia. The patient did not complain of chest pain with exercise. IMPRESSION: Low risk study. No evidence of exercise-induced ischemia. Occasional PACs and PVCs at peak exercise noted. No arrhythmia. Accelerated chronotropic competence. Reduced exercise capacity. Dictated by: Clarissa Holliday D.O. on 12/10/2022 at 16:44 Approved by: Clarissa Holliday D.O. on 12/10/2022 at 16:49
== END ==
PROVIDERS: Family Provider Family Medicine; PCP Family Medicine; Referring Provider Internal Medicine Cardiovascular Disease; Visit Provider Internal Medicine Cardiovascular Disease
DX: I77.810 Thoracic aortic ectasia (principal); I77.89 Other specified disorders of arteries and arterioles; R00.1 Bradycardia, unspecified
CPT/HCPCS: 93017; 93306

== ENCOUNTER → 2023-05-12 12:49 | Outpatient (CLI) | payer MEDICARE, OTHER, SELFPAY ==
[2023-05-12 14:56] LABS: BUN Creatinine Ratio 19.5 (6-22); Blood Urea Nitrogen 26 mg/dL (7-17); Calcium 9.7 mg/dL (8.4-10.2); Carbon Dioxide 26 mmol/L (22-32); Chloride 103 mmol/L (98-107); Estimated Glomerular Filt Rate 44 mL/min (>60); Glucose 98 mg/dL (80-110); HEMOLYSIS < 15 (0-50); Potassium 4.4 mmol/L (3.4-5.1); Sodium 137 mmol/L (137-145)
== END ==
PROVIDERS: Family Provider Family Medicine; PCP Family Medicine; Referring Provider Internal Medicine Cardiovascular Disease; Visit Provider Internal Medicine Cardiovascular Disease
DX: I10 Essential (primary) hypertension (principal)
CPT/HCPCS: 36415; 80048; 83735

== ENCOUNTER → 2023-08-06 | Outpatient (CLI) | payer MEDICARE, OTHER, SELFPAY | PROVIDERS: Family Provider Family Medicine; PCP Family Medicine; Referring Provider Family Medicine; Visit Provider Family Medicine | DX: Z23 Encounter for immunization (principal) | CPT/HCPCS: 90471; 90662 ==

== ENCOUNTER → 2024-06-09 10:00 | Outpatient (CLI) | payer MEDICARE, OTHER, SELFPAY ==
[2024-06-09 10:46] LABS: Add Manual Diff / Slide Review NO; Basophils Absolute Auto 100 /uL (0-100); Basophils Percent Auto 0.7 % (0-2); Eosinophils Absolute Auto 300 /uL (0-450); Eosinophils Percent Auto 3.6 % (2-4); Hemoglobin 13.4 g/dL (12.0-16.0); Lymphocytes Absolute Auto 2800 /uL (1100-4500); Lymphocytes Percent Auto 38.8 % (25-40); Mean Corpuscular HGB Conc 33.5 % (30-36); Mean Corpuscular Hemoglobin 31.1 PG (26-34); Mean Corpuscular Volume 92.6 fL (80-100); Monocytes Absolute Auto 400 /uL (0-900); Monocytes Percent Auto 5.7 % (3-14); Neutrophils Absolute Auto 3700 /uL (1500-7000); Neutrophils Percent Auto 51.2 % (50-75); Platelet Count 340 X10^3/uL (150-400); Red Blood Cell Count 4.32 X10^6/uL (4.0-5.2); Red Cell Distribution Width 14.7 % (11.6-14.8); White Blood Cell Count 7.3 X10^3/uL (4.5-11.0)
[2024-06-09 11:15] LABS: Hemoglobin A1C% w Est Avg Glu 5.6 % (4.0-6.0)
[2024-06-09 11:16] LABS: Alanine Aminotransferase 24 IU/L (<35); Albumin 3.7 g/dL (3.5-5.0); Albumin Globulin Ratio 1.4 (1.0-2.8); Alkaline Phosphatase 87 U/L (38-126); Aspartate Aminotransferase 25 IU/L (14-36); BUN Creatinine Ratio 23.7 (6-22); Bilirubin Total 0.6 mg/dL (0.2-1.3); Blood Urea Nitrogen 23 mg/dL (7-17); Calcium 9.8 mg/dL (8.4-10.2); Carbon Dioxide 28 mmol/L (22-32); Chloride 104 mmol/L (98-107); Cholesterol 123 mg/dL (140-199); Estimated Glomerular Filt Rate > 60 mL/min (>60); Globulin 2.7 g/dL (1.7-4.1); Glucose 102 mg/dL (80-110); HDL Cholesterol 72 mg/dL (40-60); HEMOLYSIS < 15 (0-50); LDL Cholesterol Calculated 37 mg/dL (<100); Potassium 3.9 mmol/L (3.4-5.1); Sodium 137 mmol/L (137-145); Total Protein 6.4 g/dL (6.3-8.2); Triglycerides 69 mg/dL (35-150)
[2024-06-09 11:55] LABS: TSH w/ Reflex to FT4 2.19 uIU/mL (0.47-4.68)
== END ==
PROVIDERS: Family Provider Family Medicine; PCP Family Medicine; Referring Provider Internal Medicine Cardiovascular Disease; Visit Provider Internal Medicine Cardiovascular Disease
DX: R00.1 Bradycardia, unspecified (principal); Z13.1 Encounter for screening for diabetes mellitus; I10 Essential (primary) hypertension; E78.5 Hyperlipidemia, unspecified; R53.83 Other fatigue
CPT/HCPCS: 36415; 80053; 80061; 83036; 83735; 84443; 85025

== ENCOUNTER → 2024-06-16 14:44 | Outpatient (CLI) | payer MEDICARE, OTHER, SELFPAY ==
--- NOTE | 2024-06-16 | DI.CT.S_ITS ---
PROCEDURE: CT ANGIO CHEST INDICATIONS: Aneurysm of the ascending aorta, without rupture TECHNIQUE: After the administration of intravenous contrast, 2 mm thick sections acquired from the pulmonary apices to the posterior costophrenic angles. 3-dimensional maximum intensity projection (MIP) coronal and sagittal reformats were then acquired through the thorax. For radiation dose reduction, the following was used: automated exposure control, adjustment of mA and/or kV according to patient size. COMPARISON: [facility], CT, CT CHEST W CON, 04/03/2019, 7:52. [facility], CT, CT CHEST W CON, 04/17/2022, 8:14. FINDINGS: Image quality: Diagnostic. Pulmonary arteries: Pulmonary arteries are normal in size, and demonstrate no intraluminal filling defects to suggest central pulmonary embolism. Lower Neck: No enlarged lymph nodes. Thyroid: No thyroid nodules which require sonographic follow up, per consensus guidelines. Axillae: No enlarged lymph nodes. Chest Wall: Unremarkable. Bones: Unremarkable. Lungs and Pleura: No pneumothorax or pleural effusions. No consolidation or suspicious nodules. Heart: Heart size is normal. No pericardial effusion. Thoracic Vessels: The ascending aorta measures 3.9 centimeters on today's exam, previously 4.0 centimeter. Mediastinum and Kesh[place]: No enlarged lymph nodes. Esophagus: No wall thickening. Small hiatal hernia. Upper Abdomen: Stable 2 centimeter right adrenal nodule compared with 2019; this is statistically benign. Scattered subcentimeter hypoattenuating liver lesions, too small to characterize by CT but probably small cysts. IMPRESSION: Ectatic ascending aorta measuring 3.9 centimeters, previously 4.0 centimeter. Benign right adrenal adenoma based on stability criteria. [place] [employer]ocrin[employer] recommend routine biochemical screening to exclude a functional adenoma. Dictated by: Igor Dorsey M.D. on 06/16/2024 at 16:41 Approved by: Igor Dorsey M.D. on 06/16/2024 at 16:44
== END ==
PROVIDERS: Family Provider Family Medicine; PCP Family Medicine; Referring Provider Internal Medicine Cardiovascular Disease; Visit Provider Internal Medicine Cardiovascular Disease
DX: I71.21 Aneurysm of the ascending aorta, without rupture (principal); D35.01 Benign neoplasm of right adrenal gland; K44.9 Diaphragmatic hernia without obstruction or gangrene
CPT/HCPCS: 71275; Q9967